=== PATIENT | female | born 1955 | race African-American/Black ===

== ENCOUNTER 2016-11-30 18:05 | Observation (INO) | payer OTHER ==
[~2016-11-30] VITALS: Ht 162.6 cm; Wt 49.2 kg
--- NOTE | ~2016-11-30 | ST ---
Unit #: [id number] #: [id number] Patient: NITHYA NOLAN [id number] [address] [address] [id number] I MR#: [id number] NAME: NITHYA NOLAN : 1955 SEX: F STUDY DATE/TIME: 12/01/2016 UNIT: C3A PCU ROOM: [facility] STUDY DESCRIPTION: Attending Physician: Mynor Goodson M.D. Primary Care Physician: No Primary Care Physician CARDIOLOGY REPORT FINDINGS Baseline EKG: Normal sinus rhythm, nonspecific ST-T changes. Resting heart rate 52 per minute, blood pressure 126/76. This 61-year-old patient received 0.4 mg of Lexiscan intravenously. During the test, no ischemic changes noted. No arrhythmias noted. Blood pressure was stable. INTERPRETATION 1. Nondiagnostic EKG during Lexiscan. 2. No arrhythmias noted. 3. Stable blood pressure during the test. 4. Correlate with Cardiolite study. Dictated by... Adelaida Reyes/emiliano TD: 12/02/2016 10:56 JOB #: [id number] CARDIOLOGY REPORT Page 1 of 1 X Coreen Otoole MD CARDIOLOGY REPORT
--- NOTE | ~2016-11-30 | MAL ---
[facility] Nutrition Therapy DATE: 12/01/16 Patient: NITHYA NOLAN Physician: DANNA Address: [place] [address] Room/Bed: [address] [place] [address], Zip: [place] [address] Admit Date: 11/30/16 Date of : 55 Height: 5 4 Weight: 108 49.2 PHYSICAL MALNUTRITION ASSESSMENT Energy Intake, Acute Injury/Illness Severely reduced: </=50% needs for >/=5 days Weight Loss, Acute Injury/Illness Severe: >5% past 1 month Weight Loss, Comment: 14% body weight loss in 2 months Physical Findings Body Fat and Muscle Mass Moderate: (suggested) some loss of subqutaneous fat and/or muscle mass Physical Findings Functional Capacity Moderate: (suggested) reduced functional capacity Physical Findings Comment: Appears thin but well-nourished Malnutrition Survey Results: Malnutrition identified Malnutrition Etiology Summary: Acute injury/illness severe Malnutrition Survey Comment: See full RD assessment for details and recommendations Respectfully, Carmen Pop RD, PEDRO [facility] cc: client file
--- NOTE | ~2016-11-30 | TH ---
Unit #: [id number] #: [id number] Patient: NITHYA NOLAN [id number] [address] [address] [id number] I MR#: [id number] NAME: NITHYA NOLAN : 1955 SEX: F STUDY DATE/TIME: 12/01/2016 UNIT: C3A PCU ROOM: 304 STUDY DESCRIPTION: Attending Physician: Mynor Goodson M.D. Primary Care Physician: No Primary Care Physician CARDIOLOGY REPORT EXAM Cardiolite study. PROCEDURE This 61-year-old patient received 0.4 mg of Lexiscan intravenously followed with 34.1 mCi of technetium 99m Cardiolite and images were obtained according to a standard SPECT protocol. For resting images, 10.25 mCi of Cardiolite was injected. Images were reviewed in both phases. FINDINGS Overall study quality is excellent. The LV cavity size is normal in both images. There is no lung activity. RV is normal. Rotating raw data showed no significant artifact, soft tissue attenuation, or GI uptake. Review of SPECT images showed a normal homogeneous radiotracer concentration throughout the myocardium in both the stress and rest images. Gated images showed a normal LV wall thickening and wall motion with an estimated LV ejection fraction of 69%. IMPRESSION Myocardial perfusion imaging is normal. No evidence of ischemia or infarct. Normal LV dimensions. Normal systolic LV function with an estimated LV ejection fraction of 69%. Dictated by... Adelaida Reyes/emiliano TD: 12/02/2016 11:11 JOB #: [id number] CARDIOLOGY REPORT Page 1 of 1 X Coreen Otoole MD CARDIOLOGY REPORT
--- NOTE | ~2016-11-30 | CR72 ---
[facility] A Service of [facility] & [facility] RADIOLOGY TEXT RESULTS PATIENT: NITHYA NOLAN LOCATION: [facility] 304-01 : 55 UNIT #: [id number] AGE: [address]: Mynor Goodson MD SEX: F ORDER DR: [id number] [facility] [address] [facility]. [place], [place] [address] [id number] I MR#: [id number] Acc #: [id number] NAME: NITHYA NOLAN : 1955 SEX: F STUDY DATE/TIME: UNIT: [address] ROOM: [facility] STUDY DESCRIPTION: CR Chest Single View Portable Attending Physician: Mynor Goodson M.D. Ordering Physician: Ed Doctor [id number] [facility] Primary Care Physician: Primary Care Physician No MEDICAL IMAGING REPORT This report is preliminary unless electronic signature is present EXAM Chest portable 11/30/2016 1908 hours HISTORY Chest pain at work today. COMPARISON 10/06/2007 FINDINGS Portable upright chest demonstrates normal heart size. Mediastinal, hilar, aortic contours are normal. The lungs are clear. There is no effusion or pneumothorax. IMPRESSION Normal upright portable chest film. Dictated by... Tea Bettencourt M.D. THIS IS AN ELECTRONICALLY VERIFIED REPORT Tea Bettencourt M.D. at 12/01/2016 2:35 PM Karely TD: 12/01/2016 10:10 JOB #: [id number] MEDICAL IMAGING REPORT Page 1 of 1 COPY
--- NOTE | ~2016-11-30 | EKG ---
PATIENT: NITHYA NOLAN UNIT #: [id number] Ventricular Rate: 60 BPM Atrial Rate: 60 BPM P-R Interval: 140 ms QRS Duration: 90 ms Q-T Interval: 416 ms QTC Calculation(Bezet): 416 ms P [place]: 50 degrees Calculated R [place]: 26 degrees Calculated T [place]: 52 degrees Diagnosis Line: Normal sinus rhythm Diagnosis Line: Normal ECG Diagnosis Line: No previous ECGs available Diagnosis Line: Confirmed by JACKIE NEVILLE MD ([id number]) on Diagnosis Line: 12/01/2016 5:08:01 PM INTERPRETING MD: KELIN MALHOTRA
--- NOTE | ~2016-11-30 | A ---
[facility] Nutrition Therapy DATE: 12/01/16 Patient: NITHYA NOLAN Physician: DANNA Address: [facility] [address] Room/Bed: [address] [place] [address], Zip: [place] [address] Admit Date: 11/30/16 Date of : 55 Height: 5 4 Weight: 108 49.2 NUTRITIONAL ASSESSMENT: REASON: Low BMI Admitting dx: 61 y/o female admitted with chest pain PMH: No H&P available at this time Anthropometrics: Ht: 64", Wt: 108 lbs, BMI: 18.5 (underweight) Labs: WNL Meds: Nacl, Lipitor I/O & Bowel function: BM 11/30 Skin Integrity: No significant issues, no edema Estimated Nutrition Needs: Increased due to weight loss and underweight status Assessment: Chart reviewed, events noted. CT of chest negative, cardiology following. No etiology of chest pain identified yet, patient's labs are normal. She is clinically underweight and although she scored 0 points on the malnutrition risk screen she reports UBW of 125 lbs 2 months ago which denotes a 14% weight loss (severe) due to poor appetite. She states recent chest pain/illness has also contributed to her weight loss. 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 She is on a regular diet, ate approx. 50% of lunch today per RD observation. She states she regularly cooks at home but once she finishes cooking she only wants a few bites. RD encouraged increase in physical activity at home if cleared by cardiology to help stimulate appetite and encouraged adding protein shakes BID. Pt amenable to trying vanilla Ensure- will order. RD encouraged adequate kcal/protein intake to prevent further weight decline. Patient agreed but seemed solemn and somewhat uninterested in nutrition discussion. She qualifies for severe PCM based on weight loss and poor oral intake. I showed her the menu and encouraged her to choose whatever sounded good, as she reported not liking lunch today. See recs below, will follow. Dx: Malnutrition r/t acute illness AEB 14% body weight loss in 2 months, reduced oral intake < 50% of energy needs for > 5 days, BMI 18.5. Intervention: Ensure shakes BID [facility] Nutrition Therapy DATE: 12/01/16 Patient: NITHYA NOLAN Physician: DANNA Address: [facility] [address] Room/Bed: [address] [place] [address], Zip: [place] [address] Admit Date: 11/30/16 Date of : [birth year] Height: 5 4 Weight: 108 49.2 Monitoring, Evaluation and Goals: 1. PO intake > 50% of meals/supps. 2. Gradual weight gain towards a healthy BMI range. Monitor: per protocol, criteria to determine if above goals met Recommendations: 1. Continue regular diet, adding vanilla Ensure shakes BID to increase oral kcal/protein intake. 2. Pt qualifies for severe PCM due to reduced oral intake x 2 months and 14% body weight loss. She is clinically underweight- please weigh q 3 days for monitoring purposes. RD will follow Moderate nutrition risk Respectfully, Carmen Pop, JHOANA, LD [facility] cc: client file
--- NOTE | ~2016-11-30 | DS ---
Unit #: [id number] #: [id number] Patient: NITHYA NOLAN [id number] [address] [id number] [facility]. [place], [place] [address] [id number] I MR#: [id number] NAME: NITHYA NOLAN. ROOM: 304 Age: 61 Sex: F Admission Date: 11/30/2016 : 1955 Discharge Date: 12/01/2016 Attending Physician: Mynor Goodson M.D. Primary Care Physician: Primary Care Physician No DISCHARGE SUMMARY SHORT STAY SUMMARY HISTORY OF PRESENT ILLNESS This is a 61-year-old female with no prior medical history except glaucoma. She presented to the ER with chest pain described as a heaviness in her left chest with some accompanying shortness of air, nausea, and lightheadedness. 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 It started around 2 p.m. and continued throughout the day. At 5 o'clock, it was still present, so she presented to the ER. She was given nitroglycerin in the ER, and the pain resolved. She has had no recurrence since then. She denies prior incidents of chest pain or chest discomfort. She states she is fairly active, walks daily. Denies a prior history of diabetes, hyperlipidemia, or family history of coronary artery disease. She does have a history of hypertension in the past and tobacco abuse. She states she had quit smoking for approximately a year but started again recently with the of her sister. She also reports decreased appetite since her sister's a few weeks ago. She does report intermittent palpitations or rapid heart rate. She states she usually feels a little anxious and feels her heart racing, so she lays down and it resolves within minutes. She denies shortness of air or chest pain with the palpitations. PAST MEDICAL HISTORY 1. Remote hypertension. 2. Tobacco abuse. PAST SURGICAL HISTORY She denies any surgical history. SOCIAL HISTORY She lives alone. She does smoke. She states she quit for about a year but recently started smoking again with the of her sister. Her sister a few weeks ago. She states she has had decreased appetite since her sister's passing. She denies alcohol or illicit drug use. ALLERGIES No known drug allergies. HOME MEDICATIONS Cosopt eyedrops. REVIEW OF SYSTEMS Unit #: [id number] #: [id number] Patient: NITHYA NOLAN Positive for weakness, fatigue, chest heaviness, shortness of air, nausea, lightheadedness, and decreased appetite. Positive for intermittent palpitations. PHYSICAL EXAMINATION VITAL SIGNS: Temperature 98.4, heart rate 51, respiratory rate 16, and blood pressure 112/65. Height 64 inches, weight 49.2 kg. GENERAL: This is a 61-year-old thin female up at the side of the bed in no acute distress. HEENT: Head is atraumatic and normocephalic. Mucous membranes are moist. Pupils are equal and (1) . NECK: Supple. Trachea is midline. No JVD. LUNGS: Clear. Nonlabored respirations. CARDIOVASCULAR: S1 and S2, regular rate and rhythm. No murmurs, rubs, or gallops. ABDOMEN: Soft, nontender, and nondistended. EXTREMITIES: Pulses are palpable. No pedal edema. No cyanosis. NEUROLOGIC: Alert and oriented x3. Moves all extremities equally and follows commands without difficulty. DIAGNOSTIC STUDIES LABORATORY: Sodium 135, potassium 3.9, chloride 103, BUN 11, creatinine 0.6, glucose 84, hemoglobin 12.1, hematocrit 35.5, white blood cell count 6.4, and platelets 241,000. TSH 0.6. Point of care troponin less than 0.05 and troponin less than 0.03. Cholesterol 166, triglycerides 40, LDL 105, and HDL 53. IMAGING: Chest x-ray shows no acute disease. CARDIOLOGY: EKG shows sinus rhythm with a ventricular rate of 60 and nonspecific T wave abnormalities. ASSESSMENT 1. Chest pain. 2. History of hypertension. 3. Tobacco abuse. 4. Anxiety. PLAN 1. Cardiolite exercise stress test. 2. Continue to trend troponins. 3. Check echocardiogram. 4. Continue aspirin and statin. ADDENDUM Please note, patient underwent Lexiscan Cardiolite stress test. It was negative for ischemia per Dr. Otoole. Dictated report is currently pending. The patient is currently chest pain free and has had no chest pain reoccurrence. She is stable for discharge home. DISCHARGE DISPOSITION Home. FOLLOWUP With her primary care doctor in one to two weeks. DISCHARGE INSTRUCTIONS Continue her statin and aspirin. Educated to return to ER if chest pain Unit #: [id number] #: [id number] Patient: KEVIN NOLANMATT velasquez. Dictated by... ART Ziegler TD: 12/01/2016 16:26 JOB #: [id number] DISCHARGE SUMMARY Page 1 of 1 X X DISCHARGE SUMMARY
[2016-11-30 19:03] LABS: BASOPHIL% 0.6 % (0-2.5); EOSINOPHIL# 0.1 X10e3 (0-0.7); EOSINOPHIL% 1.7 % (0.0-7.0); HEMATOCRIT 34.7 % (35.0-45.0); HEMOGLOBIN 11.7 gm/dL (12.0-16.0); LYMPHOCYTE# 2.9 X10e3 (1.0-3.5); LYMPHOCYTE% 39.3 % (17.0-45.0); MEAN CELL VOLUME 83.5 FL (83-96); MEAN CORPUSCULAR HEMOGLOBIN 28.1 PG (28-34); MEAN CORPUSCULAR HGB CONC 33.6 g/dL (30-36); MEAN PLATELET VOLUME 7.1 FL (6.5-11.5); MONOCYTE# 0.6 X10e3 (0-1.0); MONOCYTE% 8.7 % (3.0-12.0); NEUTROPHIL# 3.6 X10e3 (1.5-7.1); NEUTROPHIL% 49.7 % (40-75); PLATELET COUNT 237 X10e3 (140-420); RED BLOOD COUNT 4.15 X10e (3.90-5.30); RED CELL DISTRIBUTION WIDTH 14.2 % (11.0-15.5); WHITE BLOOD COUNT 7.3 X10e3 (4.0-10.5)
[2016-11-30 19:04] LABS: DIFF IND NO
[2016-11-30 19:16] LABS: INR 1.1; PARTIAL THROMBOPLASTIN TIME 23.6 SECONDS (23.5-31.3); PROTHROMBIN TIME (PATIENT) 11.5 SECONDS (10.0-11.7)
[2016-11-30 19:23] LABS: POC - CKMB <1.0 ng/mL (0.0-7.9); POC - TROPONIN <0.05 ng/mL (<=0.05)
[2016-11-30 19:39] LABS: ALBUMIN SERUM 4.3 g/dL (3.5-5.0); BILIRUBIN, DIRECT 0.1 mg/dL (0.0-0.2); BILIRUBIN,INDIRECT 0.3 mg/dL (0.0-0.9); BILIRUBIN,TOTAL 0.4 mg/dL (0.2-2.0); BUN/CREATININE RATIO 13.75; CALCIUM SERUM 9.1 mg/dL (8.4-10.2); CREATININE SERUM 0.8 mg/dL (0.6-1.4); GLOM FILT RATE Estimated 92.3 mL/min (>60); POTASSIUM 3.2 mmol/L (3.5-5.1); PROTEIN TOTAL SERUM 7.4 g/dL (6.0-8.3)
[2016-11-30 20:46] LABS: POC - CKMB <1.0 ng/mL (0.0-7.9); POC - TROPONIN <0.05 ng/mL (<=0.05)
[2016-11-30] MEDS ORDERED: COSOPT1 UNI1 OU (23:58)
[2016-12-01 04:14] LABS: BASOPHIL% 0.8 % (0-2.5); DIFF IND NO; EOSINOPHIL# 0.2 X10e3 (0-0.7); EOSINOPHIL% 3.6 % (0.0-7.0); HEMATOCRIT 35.5 % (35.0-45.0); HEMOGLOBIN 12.1 gm/dL (12.0-16.0); LYMPHOCYTE# 3.1 X10e3 (1.0-3.5); LYMPHOCYTE% 47.9 % (17.0-45.0); MEAN CELL VOLUME 83.4 FL (83-96); MEAN CORPUSCULAR HEMOGLOBIN 28.3 PG (28-34); MEAN PLATELET VOLUME 7.3 FL (6.5-11.5); MONOCYTE# 0.7 X10e3 (0-1.0); MONOCYTE% 11.5 % (3.0-12.0); NEUTROPHIL# 2.3 X10e3 (1.5-7.1); NEUTROPHIL% 36.2 % (40-75); PLATELET COUNT 241 X10e3 (140-420); RED BLOOD COUNT 4.26 X10e (3.90-5.30); RED CELL DISTRIBUTION WIDTH 14.5 % (11.0-15.5); WHITE BLOOD COUNT 6.4 X10e3 (4.0-10.5)
[2016-12-01 04:37] LABS: BUN/CREATININE RATIO 18.33; CALCIUM SERUM 9.2 mg/dL (8.4-10.2); CREATININE SERUM 0.6 mg/dL (0.6-1.4); POTASSIUM 3.9 mmol/L (3.5-5.1)
[2016-12-01] MEDS ORDERED: ASPIRIN81 MG PO (15:39)
[2016-12-01] MEDS ORDERED: LIPITOR40 MG PO (15:39)
== END 2016-12-01 17:13 | disposition home or self-care (01) ==
LOC: CED 18:05 → CEDOF 21:10 → C3A PCU 21:45 → CEDOF 21:45 → C3A PCU 23:31
PROVIDERS: Emergency Medicine
DX: R07.9 Chest pain, unspecified (principal); F17.200 Nicotine dependence, unspecified, uncomplicated; F41.9 Anxiety disorder, unspecified; Z86.79 Personal history of other diseases of the circulatory system
CPT/HCPCS: 36415; 71010; 78452; 80048; 80061; 80076; 82553; 83036; 84443; 84484; 85025; 85610; 85730; 93005; 93017; 93306; 99285; A9500; G0378; J2785